=== PATIENT | male | born 1945 | race Caucasian/White ===

== ENCOUNTER 2017-02-19 18:10 | Inpatient (IN) | payer MEDICARE, OTHER ==
[~2017-02-19] VITALS: Ht 185.4 cm; Wt 84.0 kg
--- NOTE | 2017-02-19 18:26 | NUR ---
PT [facility] TO ER BED 11. C/O BILAT LOWER EXTREMITY PAIN AND SWELLING. GOWNED AND PLACED ON MONITOR. STABLE VITALS. AWAITING MD GUNN.
--- NOTE | 2017-02-19 18:30 | NUR ---
DR MTZ AT BEDSIDE FOR EVAL.
[2017-02-19 18:51] LABS: BASOPHILS % (AUTO) 0.7 % (0.0-2.0); EOSINOPHILS # (AUTO) 0.1 /CMM (0.0-0.7); EOSINOPHILS % (AUTO) 2.7 % (0.0-6.0); HEMATOCRIT 39 % (39-51); HEMOGLOBIN 13.1 g/dL (13.5-17.5); LYMPHOCYTES # (AUTO) 1.1 /CMM (0.8-4.8); LYMPHOCYTES % (AUTO) 20.8 % (20.0-44.0); MEAN CORPUSCULAR HEMOGLOBIN 30 PG (26.0-33.0); MEAN CORPUSCULAR HGB CONC 33 g/dl (31.0-36.0); MEAN CORPUSCULAR VOLUME 90 fL (80-96); MONOCYTES # (AUTO) 0.5 /CMM (0.1-1.30); MONOCYTES % (AUTO) 9.6 % (2.0-12.0); NEUTROPHILS # (AUTO) 3.8 /CMM (1.8-8.9); NEUTROPHILS % (AUTO) 66.2 % (43.0-81.0); PLATELET COUNT (AUTO) 185 /CMM (150-450); RDW COEFFICIENT OF VARIATION 13.6 (11.5-15.0); RED BLOOD CELL COUNT(AUTO) 4.36 MIL/uL (4.5-6.0); WHITE BLOOD COUNT (AUTO) 5.5 K/uL (4.3-11.0)
--- NOTE | 2017-02-19 18:53 | NUR ---
RADIOLOGY AT BEDSIDE FOR CHEST XRAY.
[2017-02-19] MEDS ORDERED: OLAN5TAB3 PO (19:05)
[2017-02-19] MEDS ORDERED: LIOT5TAB8 PO (19:05)
[2017-02-19] MEDS ORDERED: AMLO5TAB2 PO (19:05)
[2017-02-19] MEDS ORDERED: DIGO125T PO (19:05)
[2017-02-19] MEDS ORDERED: MIRT15TA7 PO (19:05)
[2017-02-19] MEDS ORDERED: WARF6TAB23 PO (19:05)
[2017-02-19] MEDS ORDERED: SIMV20TA6 PO (19:05)
[2017-02-19] MEDS ORDERED: LEVO50TA8 PO (19:05)
[2017-02-19] MEDS ORDERED: METO50TA3 PO (19:05)
[2017-02-19 19:17] LABS: CARBON DIOXIDE 26 mmol/L (21-32); CHLORIDE 105 mmol/L (98-107); CREATININE 0.9 mg/dL (0.6-1.3); GLUCOSE 104 mg/dL (74-106); POTASSIUM 4.1 mmol/L (3.5-5.1); SODIUM SERUM 137 mmol/L (136-145); UREA NITROGEN, BLOOD 27 mg/dL (7-18)
[2017-02-19 19:22] LABS: ALBUMIN 3.6 g/dL (3.4-5.0); ALKALINE PHOSPHATASE 42 U/L (46-116); ASPARTATE AMINOTRANSFERASE 21 U/L (15-37); BILIRUBIN,DIRECT 0.1 mg/dL (0.0-0.2); BILIRUBIN,TOTAL 0.4 mg/dL (0.2-1.0); TOTAL PROTEIN, SERUM 8.1 g/dL (6.4-8.2)
[2017-02-19 19:25] LABS: ALANINE AMINOTRANSFERASE < 6 U/L (12-78)
[2017-02-19 19:29] LABS: INR 2.61 (0.87-1.13); PROTHROMBIN TIME 28.5 SECS (9.5-12.7)
[2017-02-19 20:03] LABS: TROPONIN I < 0.017 ng/mL (0.00-0.056)
--- NOTE | 2017-02-19 20:22 | NUR ---
REPORT GIVEN TO ANGELITO. PT AWAITING TRANSFER TO FLOOR.
[2017-02-19 20:45] VITALS: BP 130/91
[2017-02-19 21:00] VITALS: BP 130/91
--- NOTE | 2017-02-19 21:00 | NUR ---
MS RN NOTE RECEIVED PATIENT AWAKE ALERT AND ORIENTED IN WHEELCHAIR FROM ER. PATIENT DENIES ANY PAIN OR DISCOMFORT AT THIS TIME. NO RESPIRATORY DISTRESS OR SOB NOTED. IV SITE TO RFA INTACT, WITH NO REDNESS NOTED. ALL BELONGINGS CHECKED AND ACCOUNTED FOR. CELLULITIS NOTED TO BILATERAL FEET. PICTURES TAKEN AND PLACED IN CHART. WOUND CARE CONSULT ORDERED. ORIENTED PATIENT TO ROOM AND TO UNIT. SIDE RAILS UP, CALL LIGHT WITHIN REACH. WILL CONTINUE TO MONITOR.
--- NOTE | 2017-02-20 06:10 | NUR ---
MS RN NOTE PATIENT STABLE. ALL NEEDS MET AND ATTENDED TO. RESTING COMFORTABLY IN BED. WILL ENDORSE TO DAY SHIFT FOR JYOTHI.
--- NOTE | 2017-02-20 07:20 | NUR ---
MS RN INITIAL NOTES REPORT RECEIVED AT THE BEDSIDE. PATIENT IS RESTING COMFORTABLY IN BED. NO SOB OR DISTRESS. PATIENT REPORTS TOLERABLE PAIN AT THIS TIME. BED IN A LOW POSITION, CALL LIGHT WITHIN PATIENT REACH. WILL CONTINUE TO MONITOR.
[2017-02-20 07:22] LABS: BASOPHILS % (AUTO) 0.8 % (0.0-2.0); EOSINOPHILS # (AUTO) 0.2 /CMM (0.0-0.7); EOSINOPHILS % (AUTO) 3.3 % (0.0-6.0); HEMATOCRIT 39 % (39-51); LYMPHOCYTES # (AUTO) 1.1 /CMM (0.8-4.8); LYMPHOCYTES % (AUTO) 21.3 % (20.0-44.0); MEAN CORPUSCULAR HEMOGLOBIN 31 PG (26.0-33.0); MEAN CORPUSCULAR HGB CONC 34 g/dl (31.0-36.0); MEAN CORPUSCULAR VOLUME 91 fL (80-96); MONOCYTES # (AUTO) 0.6 /CMM (0.1-1.30); MONOCYTES % (AUTO) 11.5 % (2.0-12.0); NEUTROPHILS # (AUTO) 3.1 /CMM (1.8-8.9); NEUTROPHILS % (AUTO) 63.1 % (43.0-81.0); PLATELET COUNT (AUTO) 176 /CMM (150-450); RDW COEFFICIENT OF VARIATION 14.3 (11.5-15.0); RED BLOOD CELL COUNT(AUTO) 4.25 MIL/uL (4.5-6.0)
[2017-02-20 07:53] LABS: ALANINE AMINOTRANSFERASE 22 U/L (12-78); ALBUMIN 3.3 g/dL (3.4-5.0); ALKALINE PHOSPHATASE 37 U/L (46-116); ASPARTATE AMINOTRANSFERASE 21 U/L (15-37); BILIRUBIN,TOTAL 0.4 mg/dL (0.2-1.0); CALCIUM, SERUM 8.7 mg/dL (8.5-10.1); CARBON DIOXIDE 28 mmol/L (21-32); CHLORIDE 107 mmol/L (98-107); CREATININE 0.9 mg/dL (0.6-1.3); GLUCOSE 95 mg/dL (74-106); MAGNESIUM 1.8 mg/dL (1.8-2.4); PHOSPHORUS 3.3 mg/dL (2.5-4.9); SODIUM SERUM 142 mmol/L (136-145); TOTAL PROTEIN, SERUM 7.3 g/dL (6.4-8.2); UREA NITROGEN, BLOOD 23 mg/dL (7-18)
[2017-02-20 08:00] VITALS: BP 128/86
--- NOTE | 2017-02-20 11:16 | NUR ---
WOUND CARE CONSULT: PT PRESENTS WITH PEELING SKIN ON FEET. DEFER TO PODIATRY. WILL SEE PRN.
[2017-02-20 16:00] VITALS: BP 121/71
--- NOTE | 2017-02-20 18:43 | NUR ---
MS RN CLOSING NOTE NO SIGNIFICANT CHANGE IN PATIENT CONDITION THROUGHOUT THE SHIFT. NO SOB OR DISTRESS NOTED. PATIENT REPORTS TOLERABLE PAIN AT THIS TIME. BED IN LOW POSITION, CALL LIGHT WITHIN PATIENT REACH. WILL ENDORSE FOR JYOTHI.
--- NOTE | 2017-02-20 19:30 | NUR ---
RN OPENING NOTES Received patient in bed, awake and alert, verbally responsive and able to make needs known. No apparent distress noted, no c/o pain or discomfort as of this time. Reinforced teaching to ask for assistance when going to the bathroom. Verbalized understanding. will continue to monitor
[2017-02-20 20:00] VITALS: BP 118/90
--- NOTE | 2017-02-21 06:00 | NUR ---
RN CLOSING NOTES No change in condition noted. Patient is barrera and relaxed during shift, slept comfortably. Due meds given as ordered. Assisted to the bathroom. Reinforced teaching that he should call for assistance when getting out of bed. all needs attended. will continue to monitor.
[2017-02-21 08:00] VITALS: BP 132/94
--- NOTE | 2017-02-21 08:00 | NUR ---
MS RN OPENING NOTE PATIENT IS ALERT AND ORIENTED x4. NO PAIN AT THIS TIME. NO SOB OR DISTRESS NOTED. CALL LIGHT WITHIN REACH. SAFETY MEASURES IMPLEMENTED. IV INTACT AND PATENT.ABLE TO COMMUNICATE NEEDS. REMINDED PATIENT TO CALL FOR ASSISTANCE, AND TO NOT REMOVE IV. PER TRIMMER HELPER NURSE PATIENT PULLED OUT IV, AND TRIED TO PULL NEWLY INSERTED ONE. BLE CELLULITIS, TREATMENT TO BE DONE. NO AM LABS THIS MORNING. WILL CONTINUE TO MONITOR
--- NOTE | 2017-02-21 09:30 | NUR ---
MS RN NOTE IV ANTIBIOTIC NOT AVAILABLE FROM PHARMACY. INFORMED PHARMACY.
[2017-02-21 12:02] LABS: INR 2.59 (0.87-1.13); PROTHROMBIN TIME 29.4 SECS (9.5-12.7)
--- NOTE | 2017-02-21 18:39 | NUR ---
MS RN CLOSING NOTE PATIENT IS ALERT AND ORIENTED X4. NO PAIN AT THIS TIME. NO SOB OR DISTRESS NOTED. CALL LIGHT WITHIN REACH AT ALL TIMES. SAFETY MEASURES IMPLEMENTED. ALL DUE MEDICATIONS GIVEN ORDERED. ABLE TO COMMUNICATE NEEDS. WOUND TREATMENT DONE, TWICE. IV INTACT AND PATENT NO REDNESS OR SWELLING NOTED, FLUSHES WELL. WILL ENDORSE TO [facility] REPAIR PERSON NURSE FOR JYOTHI
--- NOTE | 2017-02-21 19:10 | NUR ---
MS/URGENT CARE; RECEIVED PT 'S REPORTS FROM THE DAY SHIFT RN FOR CONTINUITY OF CARE. AT THIS TIME PT IN BED AWAKE, ALERT, AND ORIENTED X 3. BREATHING NON LABORED. DENIES PAIN. HL ON LFA INTACT. BOTH LOWER LEGS WITH SOME REDNESS AND WITH SWELLING ON BOTH FEET AND ELEVATED ON PILLOWS. PT REMINDED TO CALL FOR HELP AND UPPER PART OF BED SIDE RAILS ARE UP FOR SAFETY. WILL CONTINUE TO MONITOR. CALL LIGHT WITHIN REACH.
[2017-02-21 20:00] VITALS: BP 135/84
--- NOTE | 2017-02-22 | NUR ---
MS/OPERATIONS TEAM LEADER; PT IN BED SLEEPING AT THIS TIME. BREATHING NON LABORED.WILL CONTINUE TO MONITOR.
--- NOTE | 2017-02-22 01:20 | NUR ---
MS/PROCESS IMPROVEMENT SPECIALIST; PT IN BED SLEEPING. BREATHING NON LABORED. WILL CONTINUE TO MONITOR.
--- NOTE | 2017-02-22 02:00 | NUR ---
MS/PROPERTY DISPOSAL MANAGER; PT IN BED SLEEPING. BREATHING NON LABORED. WILL CONTINUE TO MONITOR.
--- NOTE | 2017-02-22 04:00 | NUR ---
MS/PHOTOGRAPHIC AIDE; PT IN BED SLEEPING AT THIS TIME. BREATHING NON LABORED.
--- NOTE | 2017-02-22 06:11 | NUR ---
MS/WELLNESS CONSULTANT; SLEPT AT GOOD INTERVALS. DENIES ANY PAIN. BREATHING NON LABORED. PT HAS BEEN REMINDED TO KEEP BOTH FEET ELEVATED. WILL ENDORSE TO THE DAY SHIFT NURSE.
--- NOTE | 2017-02-22 07:20 | NUR ---
MS RN OPENING NOTE PATIENT IS IN BED, AWAKE, WATCHING TV. BED IS IN LOWEST POSITION, LOCKED, SIDE RAILS UP X 2. PATIENT IS ALERT AND ORIENTED x4. PRESENTS WITH NON LABORED BREATHING, CHEST RISES EQUALLY, BILATERALLY. IV IS INTACT AND PATENT. IV INTACT AND PATENT. URINAL AT THE BEDSIDE, ACCESSIBLE TO THE PATIENT. REMINDED PATIENT TO CALL FOR ASSISTANCE USING THE CALL LIGHT. CALL LIGHT AT THE BEDSIDE. PATIENT VERBALIZED UNDERSTANDING OF THE INFORMATION GIVEN. ALL NEEDS WITHIN REACH. ALL NEEDS ARE ATTENDED TO. WILL CONTINUE TO MONITOR.
[2017-02-22 08:00] VITALS: BP 140/68
--- NOTE | 2017-02-22 09:50 | NUR ---
MS RN NOTE CAME TO ADMINISTER PATIENT'S MEDICATIONS. PATIENT STATED WANTS TO TAKE THEM IN 15 MINUTWES. WILL COME BACK.
[2017-02-22 13:50] VITALS: BP 135/97
--- NOTE | 2017-02-22 13:51 | NUR ---
MS CROSSING WATCHMAN NOTE PATIENT IS A/O X4, STABLE WITH VS WNL. DENIES PAIN/DISCOMFORT OR DISTRESS. IV CATHETER REMOVED WITH THE TIP INTACT. OCCLUSIVE DRESSING APPLIED. REPORT HAS BEEN GIVEN TO CASSIE, THE ADMINISTRATIVE ASSISTANCE AT RECEIVING FACILITY. DISCHARGE INSTRUCTIONS PROVIDED WITH PATIENT VERBALIZING FAIR UNDERSTANDING OF THE TEACHINGS.DISCHARGE PAPERWORK GIVEN TO THE AMBULANCE STAFF. PATIENT LEFT THE UNIT VIA GURNEY IN STABLE COMNIDION ACCOMPANIED BY THE AMBULANCE STAFF.
== END 2017-02-22 13:54 | DRG 602 ==
LOC: ER 18:13 → MED 19:43
PROVIDERS: ADMIT Internal Medicine; ATTEND Internal Medicine
DX: L03.115 Cellulitis of right lower limb (principal); J15.9 Unspecified bacterial pneumonia; I48.91 Unspecified atrial fibrillation; D68.59 Other primary thrombophilia; B35.3 Tinea pedis; E03.9 Hypothyroidism, unspecified; E78.5 Hyperlipidemia, unspecified; I10 Essential (primary) hypertension; L03.116 Cellulitis of left lower limb; I25.10 Atherosclerotic heart disease of native coronary artery without angina pectoris; Z79.01 Long term (current) use of anticoagulants; Z79.899 Other long term (current) drug therapy; Z82.49 Family history of ischemic heart disease and other diseases of the circulatory system; Z95.1 Presence of aortocoronary bypass graft; Z87.891 Personal history of nicotine dependence; M20.42 Other hammer toe(s) (acquired), left foot; M20.41 Other hammer toe(s) (acquired), right foot; F29 Unspecified psychosis not due to a substance or known physiological condition
CPT/HCPCS: 36415; 71010-TC; 80048-TC; 80053-TC; 80076-TC; 83605-TC; 83735-TC; 84100-TC; 84443-TC; 84484-TC; 85025-TC; 85610-TC; 85730-TC; 87040-TC; 87081-TC; 93925-TC; 93971-TC; A4606; J3490; J7050; J7060; Z7610